=== PATIENT | female | born 1990 | race Caucasian/White ===

== ENCOUNTER 2016-11-17 09:28 | Emergency (ER) | payer MEDICARE ==
[~2016-11-17] VITALS: Ht 165.1 cm; Wt 131.5 kg
[2016-11-17 09:34] VITALS: BP_SYST 150
[2016-11-17 10:19] LABS: BASOPHILS # (AUTO) 0.1 K/uL (0.0-0.2); BASOPHILS % (AUTO) 0.9 % (0.0-2.0); EOSINOPHILS # (AUTO) 0.4 K/uL (0.0-0.4); HEMATOCRIT 45.7 % (36-48); HEMOGLOBIN 15.3 g/dL (12.0-16.0); LYMPHOCYTES % (AUTO) 28.3 % (20.5-51.5); MEAN CORPUSCULAR HEMOGLOBIN 29 pg (27-31); MEAN CORPUSCULAR HGB CONC 33 % (32-36); MEAN CORPUSCULAR VOLUME 88 fL (79.0-98.0); MONOCYTES # (AUTO) 1.2 K/uL (0.0-1.0); MONOCYTES % (AUTO) 11.4 % (1.7-9.3); NEUTROPHILS % (AUTO) 55.4 % (40.0-70.0); PLATELET COUNT (AUTO) 295 K/uL (130-430); RED BLOOD CELL COUNT(AUTO) 5.21 MIL/uL (4.2-6.2); WHITE BLOOD COUNT (AUTO) 10.7 K/uL (4.8-10.8)
[2016-11-17 10:24] LABS: CALCIUM 8.9 mg/dL (8.4-11.0); CREATININE 0.71 mg/dL (0.55-1.30)
[2016-11-17 10:28] LABS: ALBUMIN 3.7 g/dL (3.4-4.8); INR 0.9 (0.8-1.2); TOTAL BILIRUBIN 0.4 mg/dL (0.0-1.0); TOTAL PROTEIN, SERUM 8.1 g/dL (6.4-8.3)
[2016-11-17 11:00] VITALS: BP_SYST 155
== END 2016-11-17 11:00 | disposition home or self-care (01) ==
LOC: SED 09:28
DX: J32.0 Chronic maxillary sinusitis (principal); I10 Essential (primary) hypertension
CPT/HCPCS: 36415; 70486-TC; 80053; 85025; 85610-TC; 85730-TC; 99285

== ENCOUNTER 2017-02-05 02:14 | Emergency (ER) | payer MEDICARE ==
[~2017-02-05] VITALS: Ht 165.1 cm; Wt 131.5 kg
[2017-02-05 02:16] VITALS: BP_SYST 151
[2017-02-05] MEDS ORDERED: ONDANSETRON 4 MG ODT TAB PO ONE (02:30)
[2017-02-05 02:45] LABS: BASOPHILS # (AUTO) 0.2 K/uL (0.0-0.2); BASOPHILS % (AUTO) 1.2 % (0.0-2.0); EOSINOPHILS # (AUTO) 0.3 K/uL (0.0-0.4); EOSINOPHILS % (AUTO) 1.5 % (0.0-4.0); HEMATOCRIT 46.4 % (36-48); HEMOGLOBIN 15.5 g/dL (12.0-16.0); LYMPHOCYTES # (AUTO) 3.5 K/uL (1.0-5.5); LYMPHOCYTES % (AUTO) 19.7 % (20.5-51.5); MEAN CORPUSCULAR HEMOGLOBIN 29 pg (27-31); MEAN CORPUSCULAR HGB CONC 33 % (32-36); MEAN CORPUSCULAR VOLUME 88 fL (79.0-98.0); MONOCYTES # (AUTO) 2.4 K/uL (0.0-1.0); MONOCYTES % (AUTO) 13.5 % (1.7-9.3); NEUTROPHILS # (AUTO) 11.3 K/uL (1.8-7.7); NEUTROPHILS % (AUTO) 64.1 % (40.0-70.0); PLATELET COUNT (AUTO) 314 K/uL (130-430); RED CELL DISTRIBUTION WIDTH 12.1 % (9.0-15.0); WHITE BLOOD COUNT (AUTO) 17.7 K/uL (4.8-10.8)
[2017-02-05 02:55] LABS: BILIRUBIN,URINE NEGATIVE (NEGATIVE); BLOOD, URINE 1+ (NEGATIVE); CLARITY/URINE CLEAR (CLEAR); COLOR,URINE YELLOW (YELLOW); GLUCOSE,URINE NEGATIVE (NEGATIVE); KETONES,URINE NEGATIVE (NEGATIVE); LEUKOCYTE ESTERASE ,URINE 1+ (NEGATIVE); NITRITE, URINE NEGATIVE (NEGATIVE); PROTEIN URINE NEGATIVE (NEGATIVE); UROBILINOGEN,URINE 0.2 (0.2-1.0)
[2017-02-05 03:04] LABS: BACTERIA,URINE MODERATE /HPF (None Seen); RBC,URINE 0-3 /HPF (0-3)
[2017-02-05 03:06] LABS: CALCIUM 9.2 mg/dL (8.4-11.0); CREATININE 1.2 mg/dL (0.55-1.30); POTASSIUM 3.6 mmol/L (3.5-5.1)
[2017-02-05 03:10] LABS: ALBUMIN 3.7 g/dL (3.4-4.8); TOTAL BILIRUBIN 0.3 mg/dL (0.0-1.0)
[2017-02-05 03:36] VITALS: BP_SYST 135
== END 2017-02-05 03:36 | disposition home or self-care (01) ==
LOC: SED 02:14
DX: N39.0 Urinary tract infection, site not specified (principal); N21.1 Calculus in urethra; I10 Essential (primary) hypertension; R11.2 Nausea with vomiting, unspecified
CPT/HCPCS: 36415; 74176; 80053; 81000; 81025; 83690; 85025; 87086; 99285; Q0162

== ENCOUNTER 2017-06-10 00:25 | Emergency (ER) | payer MEDICARE ==
[~2017-06-10] VITALS: Ht 165.1 cm; Wt 140.6 kg
[2017-06-10 00:30] VITALS: BP_SYST 156
[2017-06-10] MEDS ORDERED: AMOXICILLIN 500 MG CAPSULE PO ONE (01:45)
[2017-06-10] MEDS ORDERED: PROMETHAZINE 6.25 MG/ CODEINE 10 MG/ 5 ML PO ONE (01:45)
[2017-06-10 02:10] VITALS: BP_SYST 152
== END 2017-06-10 02:10 | disposition home or self-care (01) ==
LOC: SED 00:25
DX: J40 Bronchitis, not specified as acute or chronic (principal); I10 Essential (primary) hypertension
CPT/HCPCS: 71045; 81025; 99283